=== PATIENT | female | born 1950 | race Two or more races ===

== ENCOUNTER 2018-07-20 15:54 | Emergency (ER) | payer SELFPAY ==
[~2018-07-20] VITALS: Ht 167.6 cm; Wt 64.0 kg
[2018-07-20 15:56] VITALS: BP 132/60
== END 2018-07-20 17:02 | disposition left against medical advice (07) ==
LOC: ER 15:54
DX: Z53.21 Procedure and treatment not carried out due to patient leaving prior to being seen by health care provider (principal)